=== PATIENT | male | born 1990 | race Caucasian/White ===

== ENCOUNTER 2018-03-19 22:09 | Emergency (ER) | payer BC ==
--- NOTE | 2018-03-19 22:24 | EDM.PDOC ---
ED HPI GENERAL MEDICAL PROBLEM - General Chief Complaint: Upper Extremity Injury/Pain Stated Complaint: PAIN RT HAND Time Seen by Provider: 03/19/18 22:12 Source of Information: Reports: Patient History Limitations: Reports: No Limitations - History of Present Illness INITIAL COMMENTS - FREE TEXT/NARRATIVE: HISTORY AND PHYSICAL: History of present illness: 28-year-old male presented emergency department with chief complaint of right hand pain after punching a plaster wall. Patient states that he punched a plaster wall with his right hand. He felt immediate pain specifically in the left fourth and fifth digit metacarpal areas. There was no laceration of the skin and he denies any loss of consciousness or other injuries. Patient takes no medications other than ibuprofen and has no known allergies. He denies any loss of sensation but has had decreased range of motion secondary to pain and swelling. On initial exam there is acute pain on the fourth and fifth metacarpal of the right hand. There is mild swelling and ecchymosis above the PIP joints of both the fourth and fifth metacarpal. Neurovascular intact, decreased range of motion secondary to pain. Review of systems: As per history of present illness and below otherwise all systems reviewed and negative. Past medical history: As per history of present illness and as reviewed below otherwise noncontributory. Surgical history: As per history of present illness and as reviewed below otherwise noncontributory. Social history: No reported history of drug or alcohol abuse. Family history: As per history of present illness and as reviewed below otherwise noncontributory. Physical exam: HEENT: Atraumatic, normocephalic, pupils reactive, negative for conjunctival pallor or scleral icterus, mucous membranes moist, throat clear, neck supple, nontender, trachea midline. Lungs: Clear to auscultation, breath sounds equal bilaterally, chest nontender. Heart: S1S2, regular, negative for clicks, rubs, or JVD. Abdomen: Soft, nondistended, nontender. Negative for masses or hepatosplenomegaly. Negative for costovertebral tenderness. Pelvis: Stable nontender. Genitourinary: Deferred. Rectal: Deferred. Extremities: Atraumatic, negative for cords or calf pain. Neurovascular unremarkable. Neuro: Awake, alert, oriented. Cranial nerves II through XII unremarkable. Cerebellum unremarkable. Motor and sensory unremarkable throughout. Exam nonfocal. Diagnostics: Right hand x-ray Therapeutics: Toradol 60 mg IM 1 Impression: Right fifth metacarpal fracture Plan: Right hand x-ray revealed a impacted comminuted with metacarpal neck fracture with volar angulation of the distal fracture fragment. I did talk to Dr. Solis, orthopedics [facility], who stated that as long as patient can make a fist we can just have him follow-up with the ortho clinic. Patient is easily able to make a fist and was placed in a splint and discharge in good condition with instructions to follow with orthopedic surgery and return [facility] permanently in a new or worsening symptoms. Definitive disposition and diagnosis as appropriate pending reevaluation and review of above. right hand Pain Score (Numeric/FACES): 8 - Related Data Allergies Allergy/AdvReac Type Severity Reaction Status Date / Time No Known Allergies Allergy Verified 03/19/18 22:44 Home Meds: Home Meds . [No Known Home Meds] 03/19/18 [History] Review of Systems - Review of Systems Review Of Systems: ROS reveals no pertinent complaints other than HPI. ED EXAM, GENERAL - Physical Exam Exam: See Below Course - Vital Signs Last Recorded V/S: Last Vital Signs Temp 97.6 F 03/19/18 22:09 Pulse 101 H 03/19/18 22:09 Resp 16 03/19/18 22:09 BP 121/73 03/19/18 22:09 Pulse Ox 98 03/19/18 22:09 - Orders/Labs/Meds Orders: Active Orders 24 hr Category Date Time Status Hand 2V Rt [CR] Stat Exams 03/19/18 22:48 Taken Meds: Medications Discontinued Medications Generic Name Dose Route Start Last Admin Trade Name Serene PRN Reason Stop Dose Admin Ketorolac Tromethamine 60 mg 03/19/18 22:48 03/19/18 22:56 Toradol IM 03/19/18 22:49 60 mg ONETIME ONE Administration Departure - Departure Time of Disposition: 00:12 Disposition: Home, Self-Care 01 Condition: Good Clinical Impression: Fracture of fifth metacarpal bone of right hand Qualifiers: Encounter type: initial encounter Fracture type: closed Metacarpal location: neck Fracture alignment: nondisplaced Qualified Code(s): S62.366A - Nondisplaced fracture of neck of fifth metacarpal bone, right hand, initial encounter for closed fracture - Discharge Information Referrals: Madelin Sinha MD [Primary Care Provider] - Forms: ED Department Discharge Additional Instructions: My general discharge The following information is given to patients seen in the emergency department who are being discharged to home. This information is to outline your options for follow-up care. We provide all patients seen in our emergency department with a follow-up referral. The need for follow-up, as well as the timing and circumstances, are variable depending upon the specifics of your emergency department visit. If you don't have a primary care physician on staff, we will provide you with a referral. We always advise you to contact your personal physician following an emergency department visit to inform them of the circumstance of the visit and for follow-up with them and/or the need for any referrals to a consulting specialist. The emergency department will also refer you to a specialist when appropriate. This referral assures that you have the opportunity for follow-up care with a specialist. All of these measure are taken in an effort to provide you with optimal care, which includes your follow-up. Under all circumstances we always encourage you to contact your private physician who remains a resource for coordinating your care. When calling for follow-up care, please make the office aware that this follow-up is from your recent emergency room visit. If for any reason you are refused follow-up, please contact the [facility] Emergency Department at and asked to speak to the emergency department charge nurse. [facility] - [facility] Professional [address], [address] [place] [address] Please call and follow-up with orthopedic surgery as we discussed. Their number is above. Take ibuprofen and Tylenol for pain and inflammation. Use rest, ice, compression, and elevation as we discussed. Return emergency department if any new or worsening symptoms. - My Orders Last 24 Hours: My Active Orders 03/19/18 22:48 Hand 2V Rt [CR] Stat - Assessment/Plan Last 24 Hours: My Active Orders 03/19/18 22:48 Hand 2V Rt [CR] Stat
[2018-03-19] MEDS ORDERED: Ketorolac 60 MG/2 ML SDV IM ONE (22:48)
[2018-03-20 01:16] VITALS: BP 117/69
--- NOTE | 2018-03-20 16:08 | CR ---
EXAM DATE: 03/19/18 PATIENT'S AGE: 28 Patient: HANG RUBIO Facility: [place], [place] Site . Site : 1990 Study: XRay Extremity Right Hand [id number]/[id number] 11:17:07 PM Ordering Physician: Justin Mcarthur Final Report: INDICATION: Punched a wall TECHNIQUE: Two views of the right hand COMPARISON: None FINDINGS/IMPRESSION: Bones: Impacted comminuted 5th metacarpal neck fracture with volar angulation of the distal fracture fragment. Joint spaces: Unremarkable. Dictated by Ez Ziegler MD @ 03/19/2018 11:19:16 PM Dictated by: Ez Ziegler MD @ 03/19/2018 23:19:27 (Electronic Signature) Report Signed by Proxy. [facility] PSY[facility]ATR[facility] CENTERJazmín
== END 2018-03-20 00:50 | disposition home or self-care (01) ==
LOC: MW.ED 22:09
DX: S62.366A Nondisplaced fracture of neck of fifth metacarpal bone, right hand, initial encounter for closed fracture (principal); W22.8XXA Striking against or struck by other objects, initial encounter
CPT/HCPCS: 73120; 96372; 99283; J1885

== ENCOUNTER 2018-10-28 10:11 | Emergency (ER) | payer BC ==
--- NOTE | 2018-10-28 10:17 | EDM.PDOC ---
ED HPI GENERAL MEDICAL PROBLEM - General Chief Complaint: Respiratory Problem Stated Complaint: FLU SYMPTOMS Time Seen by Provider: 10/28/18 10:15 Source of Information: Reports: Patient History Limitations: Reports: No Limitations - History of Present Illness INITIAL COMMENTS - FREE TEXT/NARRATIVE: HISTORY AND PHYSICAL: History of present illness: Patient is a 28-year-old male who presents to the emergency room with complaints of cough. He states he believes he has the flu and is coming off the "tail end of it". He has had symptoms for approximately one week. 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 He states that the cold air does exacerbate his symptoms. He has been using Tylenol and Advil [id number] without much relief. He is a daily ED cigarette smoker and occasional marijuana user. He denies any fever, chills, chest pain, abdominal pain, nausea, vomiting, diarrhea, constipation or dysuria. He has been eating and drinking appropriately. Review of systems: As per history of present illness and below otherwise all systems reviewed and negative. Past medical history: As per history of present illness and as reviewed below otherwise noncontributory. Surgical history: As per history of present illness and as reviewed below otherwise noncontributory. Social history: See social history for further information Family history: As per history of present illness and as reviewed below otherwise noncontributory. Physical exam: General: Well-developed and well-nourished 28-year-old male. Alert and oriented. Nontoxic appearing and in no acute distress. HEENT: Atraumatic, normocephalic, pupils equal and reactive bilaterally, negative for conjunctival pallor or scleral icterus, mucous membranes moist, TMs normal bilaterally, throat clear, neck supple, nontender, trachea midline. No drooling or trismus noted. No meningeal signs. No hot potato voice noted. Lungs: Expiratory wheezing to the right upper posterior lobe otherwise clear to auscultation, breath sounds equal bilaterally, chest nontender. Heart: S1S2, regular rate and rhythm without overt murmur Abdomen: Soft, nondistended, nontender. Negative for masses or hepatosplenomegaly. Negative for costovertebral tenderness. Pelvis: Stable nontender. Genitourinary: Deferred. Rectal: Deferred. Skin: Intact, warm, dry. No lesions or rashes noted. Extremities: Atraumatic, negative for cords or calf pain. Neurovascular unremarkable. Neuro: Awake, alert, oriented. Cranial nerves II through XII unremarkable. Cerebellum unremarkable. Motor and sensory unremarkable throughout. Exam nonfocal. Notes: At this time I will not do an influenza screening as he is not concerned of those symptoms more concerned of his chest x-ray, possible pneumonia. He would not be in the timeline for Tamiflu anyway. We'll give him a DuoNeb. Awaiting chest x-ray results Lung sounds improved post nebulizer. Chest x-ray shows no acute findings. I will treat with Medrol Dosepak and Z-Cricket as the has had the longevity of symptoms along with tobacco use. Inhaler for supportive care measures. Medication education was reviewed and discussed. He voices understanding and is agreeable to plan of care. Denies any further questions or concerns at this time. Diagnostics: Chest x-ray Therapeutics: DuoNeb Prescription: Zpack, Medrol Dosepak, Albuterol inhaler Impression: Bronchitis Plan: 1. Standard contact precautions (covering mouth while coughing, avoid sharing drinking cups and eating utensils). Please make sure you're doing good handwashing 2. Please take medications as directed 3. Supportive care measures such as Tylenol and/or ibuprofen for pain and fever management.Encourage small frequent sips of fluids to prevent dehydration. 4. Follow-up with your billiard table mechanic in the next 1-2 days. Return to the ED as needed and as discussed. Definitive disposition and diagnosis as appropriate pending reevaluation and review of above. body aches Pain Score (Numeric/FACES): 1 - Related Data Allergies Allergy/AdvReac Type Severity Reaction Status Date / Time No Known Allergies Allergy Verified 03/19/18 22:44 Home Meds: Home Meds . [No Known Home Meds] 03/19/18 [History] Past Medical History Musculoskeletal History: Reports: Back Pain, Chronic, Other (See Below) Other Musculoskeletal History: Degenerative disc - Past Surgical History GI Surgical History: Reports: Appendectomy Social & Family History - Family History Family Medical History: Noncontributory ED ROS GENERAL - Review of Systems Review Of Systems: ROS reveals no pertinent complaints other than HPI. ED EXAM, GENERAL - Physical Exam Exam: See Below (See dictation) Course - Vital Signs Last Recorded V/S: Last Vital Signs Temp 98.9 F 10/28/18 10:15 Pulse 85 10/28/18 10:15 Resp 18 10/28/18 10:15 BP 119/71 10/28/18 10:15 Pulse Ox 94 L 10/28/18 10:15 - Orders/Labs/Meds Orders: Active Orders 24 hr Category Date Time Status RT Aerosol Therapy [RC] ASDIRECTED Care 10/28/18 10:31 Active Meds: Medications Discontinued Medications Generic Name Dose Route Start Last Admin Trade Name Freq PRN Reason Stop Dose Admin Albuterol/Ipratropium 3 ml 10/28/18 10:31 10/28/18 10:59 Duoneb 3.0-0.5 Mg/3 Ml NEB 10/28/18 10:32 3 ml ONETIME ONE Administration Departure - Departure Time of Disposition: 10:53 Disposition: Home, Self-Care 01 Clinical Impression: Bronchitis - Discharge Information Instructions: Acute Bronchitis, Adult, [id number] Referrals: Madelin Sinha MD [Primary Care Provider] - Forms: ED Department Discharge Additional Instructions: The following information is given to patients seen in the emergency department who are being discharged to home. This information is to outline your options for follow-up care. We provide all patients seen in our emergency department with a follow-up referral. The need for follow-up, as well as the timing and circumstances, are variable depending upon the specifics of your emergency department visit. If you don't have a primary care physician on staff, we will provide you with a referral. We always advise you to contact your personal physician following an emergency department visit to inform them of the circumstance of the visit and for follow-up with them and/or the need for any referrals to a consulting specialist. The emergency department will also refer you to a specialist when appropriate. This referral assures that you have the opportunity for follow-up care with a specialist. All of these measure are taken in an effort to provide you with optimal care, which includes your follow-up. Under all circumstances we always encourage you to contact your private physician who remains a resource for coordinating your care. When calling for follow-up care, please make the office aware that this follow-up is from your recent emergency room visit. If for any reason you are refused follow-up, please contact the [facility] Emergency Department at and asked to speak to the emergency department charge nurse. [facility] Primary Care [address] [place] [address] [address] 1. Please stop smoking. 2. Please take medications as directed. Standard contact precautions (covering mouth while coughing, avoid sharing drinking cups and eating utensils). Please make sure you're doing good handwashing. 3. Supportive care measures such as Tylenol and/or ibuprofen for pain and fever management. Encourage small frequent sips of fluids to prevent dehydration. 4. Follow-up with your billiard table mechanic in the next 1-2 days. Return to the ED as needed and as discussed. - My Orders Last 24 Hours: My Active Orders 10/28/18 10:31 RT Aerosol Therapy [RC] ASDIRECTED - Assessment/Plan Last 24 Hours: My Active Orders 10/28/18 10:31 RT Aerosol Therapy [RC] ASDIRECTED
[2018-10-28] MEDS ORDERED: Albuterol/Ipratropium 3.0-0.5 MG/3 ML Neb Soln NEB ONE (10:31)
--- NOTE | 2018-10-28 11:08 | CR ---
EXAMINATION: Two-view chest (PA and Lateral views). HISTORY: Shortness of breath. FINDINGS: The trachea is midline. The cardiomediastinal silhouette is within normal limits. No pulmonary infiltrates, effusions or pneumothorax. Calcified mediastinal lymph nodes again noted. Stable blunting of the left costophrenic angle. Osseous structures appear unremarkable. IMPRESSION: No acute cardiopulmonary process.
[2018-10-28 11:28] VITALS: BP 116/64
== END 2018-10-28 11:25 | disposition home or self-care (01) ==
LOC: MW.ED 10:11
DX: J40 Bronchitis, not specified as acute or chronic (principal)
CPT/HCPCS: 71046; 71046-26; 94640; 99283; 99284-25; J7620-GY

== ENCOUNTER 2023-07-25 15:06 | Emergency (ER) | payer SELFPAY ==
[2023-07-25] MEDS ORDERED: Sodium Chloride 0.9% 2.5 ML Syringe FLUSH PRN (16:00)
[2023-07-25] MEDS ORDERED: Sodium Chloride 0.9% 10 ML Syringe FLUSH PRN (16:00)
[2023-07-25] MEDS ORDERED: Sodium Chloride 0.9% 1,000 ML IV STA (16:00)
[2023-07-25 16:35] LABS: APPEARANCE,URINE CLEAR; BILIRUBIN,URINE NEGATIVE (NEGATIVE); COLOR,URINE YELLOW; GLUCOSE,URINE NEGATIVE (NEGATIVE); KETONES,URINE NEGATIVE (NEGATIVE); LEUKOCYTE ESTERASE,URINE NEGATIVE (NEGATIVE); NITRITE,URINE NEGATIVE (NEGATIVE); OCCULT BLOOD,URINE NEGATIVE (NEGATIVE); PROTEIN,URINE NEGATIVE (NEGATIVE); UROBILINOGEN,URINE 0.2 EU/dL (<2.0)
[2023-07-25 16:37] LABS: BASOPHILS ABSOLUTE AUTO 0.02 K/uL (0.00-0.20); BASOPHILS PERCENT AUTO 0.2 % (0.0-1.0); EOSINOPHILS ABSOLUTE AUTO 0.14 K/uL (0.00-0.45); EOSINOPHILS PERCENT AUTO 1.4 % (0.0-6.0); HEMATOCRIT 45.6 % (42.0-52.0); HEMOGLOBIN 15.8 g/dL (14.0-18.0); IMMATURE GRAN ABSOLUTE AUTO 0.01 K/uL (0.00-0.05); IMMATURE GRAN PERCENT AUTO 0.1 % (0.0-0.4); LYMPHOCYTES ABSOLUTE AUTO 2.61 K/uL (1.00-4.80); LYMPHOCYTES PERCENT AUTO 26.7 % (24.0-44.0); MEAN CORPUSCULAR HEMOGLOBIN 28.9 pg (28.0-32.0); MEAN CORPUSCULAR HGB CONC 34.6 g/dL (32.0-36.0); MEAN CORPUSCULAR VOLUME 83.5 fL (83.0-99.0); MEAN PLATELET VOLUME 9.3 fL (9.4-12.4); MONOCYTES ABSOLUTE AUTO 0.64 K/uL (0.00-0.80); MONOCYTES PERCENT AUTO 6.6 % (0.0-8.0); NEUTROPHILS ABSOLUTE AUTO 6.35 K/uL (1.80-7.70); PLATELET COUNT,PLT 288 K/uL (150-400); RED BLOOD CELL COUNT 5.46 M/uL (4.52-5.90); WHITE BLOOD CELL COUNT,WBC 9.77 K/uL (3.9-11.3)
[2023-07-25 17:05] LABS: A/G RATIO 1.1 (0.9-1.6); ALBUMIN 4.8 g/dL (3.4-5.0); BILIRUBIN TOTAL 0.5 mg/dL (0.2-1.0); CALCIUM 9.8 mg/dL (8.5-10.1); CARBON DIOXIDE,CO2 29.1 mmol/L (21.0-32.0); CREATININE 1.2 mg/dL (0.8-1.3); EST CRCL DRUG DOSING (CG) 91.51 mL/min; POTASSIUM,K 4.1 mmol/L (3.5-5.1); PROTEIN TOTAL,TP 9.3 g/dL (6.4-8.2)
[2023-07-25] MEDS ORDERED: Iopamidol 755 MG/ML 500 ML Multipack Bottle IVPUSH ONE (17:39)
[2023-07-25 18:56] VITALS: BP 106/73; PULSE 72
== END 2023-07-25 18:55 | disposition home or self-care (01) ==
LOC: MW.ED 15:06
DX: K40.90 Unilateral inguinal hernia, without obstruction or gangrene, not specified as recurrent (principal); Z90.49 Acquired absence of other specified parts of digestive tract
CPT/HCPCS: 36415; 74177; 80053; 81003; 83605; 85025; 96360; 99284; J7030; Q9967